=== PATIENT | female | born 1985 | race Two or more races ===

== ENCOUNTER 2020-04-02 11:15 | Emergency (ER) | payer OTHER, SELFPAY ==
[~2020-04-02] VITALS: Ht 162.6 cm; Wt 124.7 kg
--- NOTE | 2020-04-02 11:20 | NUR ---
PT TO ROOM FROM LOBBY
--- NOTE | 2020-04-02 11:25 | NUR ---
INITIAL PT CONTACT. PT PRESENTS TO ED C/O RIGHT ANKLE PAIN AND SWELLING. PT STATES SHE WAS AT WORK YESTERDAY AND "ROLLED IT ON A ROCK, THEN IT BECAME PAINFUL AND SWOLLEN". PT SITTING UPRIGHT ON GURNEY, CALL LIGHT IN REACH. WILL CONTINUE TO MONITOR. ERP AT BEDSIDE.
[2020-04-02] MEDS ORDERED: IBUPROFEN 600 MG TABLET ONE (11:50)
[2020-04-02] MEDS ORDERED: IBUPROFEN 600 MG TABLET PO ONE (12:00)
--- NOTE | 2020-04-02 12:00 | NUR ---
PT TO IMAGING
--- NOTE | 2020-04-02 12:10 | NUR ---
PT SITTING UPRIGHT ON GURNEY ON CELL PHONE. RESTING COMFORTABLY. ICE PACK PLACED ON THE RIGHT ANKLE. PT DENIES ANY ADDITIONAL NEEDS AT THIS TIME. ERP AT BEDSIDE. CALL LIGHT AND PERSONAL BELONINGS WITHIN REACH.
[2020-04-02 12:21] VITALS: BP 167/97
--- NOTE | 2020-04-02 12:30 | NUR ---
PT TO CT
--- NOTE | 2020-04-02 13:28 | NUR ---
BREAK RN: PT LYING ON GURNEY. DENIES ANY PAIN AT THIS TIME. RN OBTAINED VS. PT UP FOR RECHECK BY PROVIDER.
--- NOTE | 2020-04-02 13:55 | NUR ---
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
--- NOTE | 2020-04-02 14:03 | NUR ---
PT SITTING UPRIGHT ON GURNEY ON CELL PHONE. RESTING COMFORTABLY. SPLINT IN PLACE. AWAITING ORTHO CONSULT. PT DENIES ANY ADDITIONAL NEEDS AT THIS TIME. CALL LIGHT AND PERSONAL BELONINGS WITHIN REACH.
--- NOTE | 2020-04-02 15:19 | NUR ---
Patient given discharge instructions via account strategist and they have confirmed that they understand the instructions. Patient to DC via crutches.
== END 2020-04-02 15:26 | disposition home or self-care (01) ==
LOC: ED 15:21
DX: S92.124A Nondisplaced fracture of body of right talus, initial encounter for closed fracture (principal); S92.144A Nondisplaced dome fracture of right talus, initial encounter for closed fracture; S93.491A Sprain of other ligament of right ankle, initial encounter; X50.1XXA Overexertion from prolonged static or awkward postures, initial encounter; Y93.89 Activity, other specified; Y92.488 Other paved roadways as the place of occurrence of the external cause; Y99.8 Other external cause status
CPT/HCPCS: 29515; 99284